=== PATIENT | female | born 1975 | race Caucasian/White ===

== ENCOUNTER 2018-08-31 11:50 | Emergency (ER) | payer BC ==
[2018-08-31] MEDS: SOD CHLORIDE 0.9% 1,000 ML IV (12:21)
[2018-08-31 12:29] LABS: ADD MAN DIFF? NO
[2018-08-31 12:32] LABS: WHITE BLOOD COUNT 7.2 10^3/ul (4.8-10.8)
[2018-08-31 12:32] LABS: BASOPHIL # 0.1 10^3/ul (0.0-0.1); EOSINOPHILS # 0.2 10^3/ul (0.0-0.5); EOSINOPHILS % 2.4 % (0.0-7.0); HEMATOCRIT 28.7 % (37.0-47.0); HEMOGLOBIN 8.4 g/dl (12.0-16.0); LYMPHOCYTES # 1.8 10^3/ul (0.8-2.9); LYMPHOCYTES % 25.2 % (15.0-51.0); MEAN CORPUSCULAR HEMOGLOBIN 20.9 pg (29.0-33.0); MEAN CORPUSCULAR HGB CONC 29.3 g/dl (32.0-37.0); MEAN CORPUSCULAR VOLUME 71.6 fl (82.0-101.0); MEAN PLATELET VOLUME 10.2 fl (7.4-10.4); MONOCYTE # 0.7 10^3/ul (0.3-0.9); NEUTROPHIL # 4.4 10^3/ul (1.6-7.5); PLATELET COUNT 305 10^3/UL (140-415); RED BLOOD COUNT 4.01 10^6/ul (4.20-5.40); RED CELL DISTRIBUTION WIDTH 20.4 % (11.5-14.5)
[2018-08-31 12:39] LABS: ADD UMIC YES; UR ASCORBIC ACID NEGATIVE (NEGATIVE); UR BACTERIA FEW /HPF (NONE SEEN); UR BILIRUBIN (Dip) NEGATIVE (NEGATIVE); UR BLOOD (Dip) 3+ mg/dL (NEGATIVE); UR CLARITY CLEAR (CLEAR); UR COLOR STRAW (YELLOW); UR GLUCOSE (Dip) NEGATIVE (NEGATIVE); UR KETONES (Dip) NEGATIVE (NEGATIVE); UR LEUKOCYTE ESTERASE (Dip) TRACE Leu/ul (NEGATIVE); UR NITRITE (Dip) NEGATIVE (NEGATIVE); UR RBC 3 /HPF (0-5); UR SPECIFIC GRAVITY (Dip) 1.011 (1.003-1.030); UR SQUAMOUS EPITHELIAL CELL FEW /HPF (FEW); UR TOTAL PROTEIN (Dip) NEGATIVE (NEGATIVE); UR UROBILINOGEN (Dip) NEGATIVE (NEGATIVE); UR WBC 2 /HPF (0-5)
[2018-08-31 12:56] LABS: ALANINE AMINOTRANSFERASE 11 IU/L (13-69); ALBUMIN 4.2 g/dl (3.3-4.9); ALKALINE PHOSPHATASE 91 IU/L (42-121); ANION GAP 11 (8-16); ASPARTATE AMINO TRANSFERASE 25 IU/L (15-46); BILIRUBIN,INDIRECT 0.5 mg/dl (0-1.1); BILIRUBIN,TOTAL 0.5 mg/dl (0.2-1.3); BLOOD UREA NITROGEN 11 mg/dl (7-20); CARBON DIOXIDE 27 mmol/L (21-31); CHLORIDE 109 mmol/L (97-110); CREATININE 0.61 mg/dl (0.44-1.00); GLUCOSE 101 mg/dl (70-220); LIPASE 93 U/L (23-300); POTASSIUM 3.9 mmol/L (3.5-5.1); SODIUM 143 mmol/L (135-144)
[2018-08-31 13:13] LABS: INR 0.92; PROTIME 12.4 Sec (11.9-14.9)
== END 2018-08-31 14:52 | disposition home or self-care (01) ==
LOC: FTE 11:50
DX: N92.0 Excessive and frequent menstruation with regular cycle (principal); D64.9 Anemia, unspecified; N39.0 Urinary tract infection, site not specified; I10 Essential (primary) hypertension
CPT/HCPCS: 36415; 76830; 76856; 80053; 81001; 81025; 83690; 85025; 85610; 85730; 96360; 96361; 99285-25

== ENCOUNTER 2018-09-04 10:39 | Emergency (ER) | payer BC ==
[2018-09-04] MEDS: SOD CHLORIDE 0.9% 1,000 ML IV (11:33)
[2018-09-04 11:41] LABS: ADD MAN DIFF? NO
[2018-09-04 11:45] LABS: WHITE BLOOD COUNT 6.2 10^3/ul (4.8-10.8)
[2018-09-04 11:45] LABS: BASOPHIL # 0.1 10^3/ul (0.0-0.1); BASOPHILS % 0.8 % (0.0-2.0); EOSINOPHILS # 0.1 10^3/ul (0.0-0.5); EOSINOPHILS % 1.8 % (0.0-7.0); HEMATOCRIT 28.1 % (37.0-47.0); HEMOGLOBIN 8.2 g/dl (12.0-16.0); LYMPHOCYTES # 1.5 10^3/ul (0.8-2.9); LYMPHOCYTES % 24.8 % (15.0-51.0); MEAN CORPUSCULAR HEMOGLOBIN 20.9 pg (29.0-33.0); MEAN CORPUSCULAR HGB CONC 29.2 g/dl (32.0-37.0); MEAN CORPUSCULAR VOLUME 71.5 fl (82.0-101.0); MEAN PLATELET VOLUME 10.4 fl (7.4-10.4); MONOCYTE # 0.4 10^3/ul (0.3-0.9); MONOCYTES % 7.1 % (0.0-11.0); PLATELET COUNT 291 10^3/UL (140-415); RED BLOOD COUNT 3.93 10^6/ul (4.20-5.40); RED CELL DISTRIBUTION WIDTH 19.9 % (11.5-14.5)
[2018-09-04] MEDS: ESTRADIOL VALERATE 20 MG/0.5 ML INJ IM (12:30)
[2018-09-04] MEDS: HYDROCODONE/APAP (10/325) TAB PO (14:02)
== END 2018-09-04 14:10 | disposition home or self-care (01) ==
LOC: E/R 10:39
DX: N93.9 Abnormal uterine and vaginal bleeding, unspecified (principal); D64.9 Anemia, unspecified; I10 Essential (primary) hypertension
CPT/HCPCS: 36415; 85025; 96372; 99284-25

== ENCOUNTER 2019-02-12 20:12 | Inpatient (IN) | payer BC ==
[2019-02-12 21:57] LABS: ABNORMAL IP MESSAGE 1; HEMATOCRIT 25.8 % (37.0-47.0); MEAN CORPUSCULAR HEMOGLOBIN 16.7 pg (29.0-33.0); MEAN CORPUSCULAR HGB CONC 25.6 g/dl (32.0-37.0); MEAN CORPUSCULAR VOLUME 65.3 fl (82.0-101.0); MEAN PLATELET VOLUME 9.5 fl (7.4-10.4); PLATELET COUNT 304 10^3/UL (140-415); RED BLOOD COUNT 3.95 10^6/ul (4.20-5.40)
[2019-02-12 21:57] LABS: WHITE BLOOD COUNT 8.7 10^3/ul (4.8-10.8)
[2019-02-12 22:02] LABS: POSITIVE DIFF @See below
[2019-02-12 22:03] LABS: HEMOGLOBIN 6.6 g/dl (12.0-16.0)
[2019-02-12 22:04] LABS: ADD MAN DIFF? YES
[2019-02-12 22:17] LABS: INR 0.95; PROTIME 12.8 Sec (11.9-14.9)
[2019-02-12 22:18] LABS: ALANINE AMINOTRANSFERASE 12 IU/L (13-69); ALBUMIN 4.5 g/dl (3.3-4.9); ALBUMIN/GLOBULIN RATIO 1.12; ALKALINE PHOSPHATASE 85 IU/L (42-121); ANION GAP 12 (5-13); ASPARTATE AMINO TRANSFERASE 24 IU/L (15-46); BILIRUBIN,INDIRECT 0.5 mg/dl (0-1.1); BILIRUBIN,TOTAL 0.5 mg/dl (0.2-1.3); BLOOD UREA NITROGEN 10 mg/dl (7-20); CALCIUM 9.4 mg/dl (8.4-10.2); CARBON DIOXIDE 27 mmol/L (21-31); CHLORIDE 103 mmol/L (97-110); CREATININE 0.57 mg/dl (0.44-1.00); Estimated GFR > 60 mL/min (>60); GLUCOSE 106 mg/dl (70-220); PARTIAL THROMBOPLASTIN TIME 29.1 Sec (23.0-35.0); POTASSIUM 3.7 mmol/L (3.5-5.1); SODIUM 142 mmol/L (135-144); TOTAL PROTEIN 8.5 g/dl (6.1-8.1)
[2019-02-12 22:27] LABS: TROPONIN-I < 0.012 ng/ml (0.000-0.120)
[2019-02-12] MEDS: SOD CHLORIDE 0.9% 0 ML IV (22:27)
[2019-02-12 22:30] LABS: ANISOCYTOSIS 3+ (0-0); BASOPHIL #M 0.1 10^3/ul (0.0-0.0); BASOPHILS % (M) 2 % (0-2); EOSINOPHILS % (M) 2 % (0-7); GIANT THROMBO% (M) 3 % (0-0); HYPOCHROMASIA 2+ (0-0); LYMPHOCYTES #M 2.5 10^3/ul (0.8-2.9); LYMPHOCYTES % (M) 29 % (15-51); MICROCYTOSIS 3+ (0-0); MONOCYTE #M 0.5 10^3/ul (0.3-0.9); MONOCYTES % (M) 6 % (0-11); PLATELET ESTIMATE NORMAL; POLYCHROMASIA 1+ (0-0); SEGMENTED NEUTROPHILS (M) % 61 % (39-77)
[2019-02-12] MEDS ORDERED: ONDANSETRON 4 MG INJ IV (23:00)
[2019-02-12] MEDS ORDERED: ACETAMINOPHEN 325 MG TAB PO (23:00)
[2019-02-12 23:19] LABS: IMMEDIATE SPIN CROSSMATCH 1 4
[2019-02-13] MEDS: ACETAMINOPHEN 325 MG TAB PO ×2 (05:44→12:20)
[2019-02-13 06:28] LABS: ADD MAN DIFF? NO
[2019-02-13 06:35] LABS: ABNORMAL IP MESSAGE 1; BASOPHIL # 0.1 10^3/ul (0.0-0.1); BASOPHILS % 0.7 % (0.0-2.0); EOSINOPHILS # 0.1 10^3/ul (0.0-0.5); EOSINOPHILS % 1.9 % (0.0-7.0); HEMATOCRIT 25.9 % (37.0-47.0); HEMOGLOBIN 7.2 g/dl (12.0-16.0); LYMPHOCYTES # 1.9 10^3/ul (0.8-2.9); MEAN CORPUSCULAR HEMOGLOBIN 19.2 pg (29.0-33.0); MEAN CORPUSCULAR HGB CONC 27.8 g/dl (32.0-37.0); MEAN CORPUSCULAR VOLUME 69.1 fl (82.0-101.0); MEAN PLATELET VOLUME 9.7 fl (7.4-10.4); MONOCYTE # 0.7 10^3/ul (0.3-0.9); MONOCYTES % 10.3 % (0.0-11.0); NEUTROPHILS % 58.8 % (39.0-77.0); PLATELET COUNT 233 10^3/UL (140-415); RED BLOOD COUNT 3.75 10^6/ul (4.20-5.40); RED CELL DISTRIBUTION WIDTH 20.1 % (11.5-14.5)
[2019-02-13 06:35] LABS: WHITE BLOOD COUNT 6.8 10^3/ul (4.8-10.8)
[2019-02-13 06:38] LABS: POSITIVE DIFF @See below
[2019-02-13] MEDS: LISINOPRIL 10 MG TAB PO ×2 (08:56→20:44)
[2019-02-13] MEDS: FERROUS SULFATE (EC) 325 MG TAB PO ×2 (08:56→20:44)
[2019-02-13] MEDS: ATORVASTATIN 40 MG TAB PO (20:44)
[2019-02-14 01:04] LABS: HEMATOCRIT 30.3 % (37.0-47.0); HEMOGLOBIN 8.7 g/dl (12.0-16.0)
[2019-02-14] MEDS: ACETAMINOPHEN 325 MG TAB PO (02:06)
[2019-02-14] MEDS: FERROUS SULFATE (EC) 325 MG TAB PO (08:42)
[2019-02-14] MEDS: LISINOPRIL 10 MG TAB PO (08:42)
== END 2019-02-14 11:25 | disposition home or self-care (01) | DRG 812 ==
LOC: PP2 02-13 01:00 → E/R 20:12
PROVIDERS: Pediatrics Neonatal-Perinatal Medicine
PROC: 30233N1 Transfusion of Nonautologous Red Blood Cells into Peripheral Vein, Percutaneous Approach (ICD-10-PCS; principal; 2019-02-12)
DX: D64.9 Anemia, unspecified (principal); N92.1 Excessive and frequent menstruation with irregular cycle; D25.9 Leiomyoma of uterus, unspecified
CPT/HCPCS: 36415; 36430; 80053; 81025; 84484; 85014; 85018; 85025; 85610; 85730; 86850; 86900; 86901; 86920; 90686; 93005; 93970; 99291-25

== ENCOUNTER 2019-02-18 06:22 | Day surgery (SDC) | payer BC ==
[2019-02-18] MEDS ORDERED: METOCLOPRAMIDE 10 MG INJ (07:00)
[2019-02-18] MEDS ORDERED: CEFAZOLIN 1 GM INJ (07:00)
[2019-02-18] MEDS ORDERED: LIDOCAINE 2% (SDV) 5 ML INJ (07:00)
[2019-02-18] MEDS ORDERED: SEVOFLURANE 15 MIN (07:00)
[2019-02-18] MEDS ORDERED: ONDANSETRON 4 MG INJ (07:00)
[2019-02-18] MEDS ORDERED: DEXAMETHASONE 4 MG/ML 5 ML INJ (07:00)
[2019-02-18 08:04] LABS: HEMATOCRIT 32.6 % (37.0-47.0); HEMOGLOBIN 9.1 g/dl (12.0-16.0)
[2019-02-18] MEDS ORDERED: FENTAnyl 50 MCG/ML VIAL ×2 (08:21→09:16)
[2019-02-18] MEDS ORDERED: MIDAZOLAM 1 MG/ML 2 ML INJ (08:22)
[2019-02-18] MEDS ORDERED: PROPOFOL 20 ML (08:22)
[2019-02-18] MEDS ORDERED: MIDAZOLAM 1 MG/ML 2 ML INJ IV (08:30)
[2019-02-18] MEDS ORDERED: ONDANSETRON 4 MG INJ IV (08:30)
[2019-02-18] MEDS ORDERED: HYDROmorphONE 1 MG/5 ML IV SYRINGE IV ×2 (08:30)
[2019-02-18] MEDS ORDERED: FENTAnyl 50 MCG/ML VIAL IV (08:30)
[2019-02-18] MEDS ORDERED: hydrALAzine 20 MG INJ IV (08:30)
[2019-02-18] MEDS ORDERED: DIPHENHYDRAMINE 50 MG INJ IV (08:30)
[2019-02-18] MEDS ORDERED: LEVALBUTEROL (NEB) 1.25 MG/0.5 ML AMP HHN (08:30)
[2019-02-18] MEDS ORDERED: LABETALOL HCL 20MG INJ IV (08:30)
[2019-02-18] MEDS ORDERED: MEPERIDINE 25 MG INJ IV (08:30)
[2019-02-18] MEDS: FENTAnyl 50 MCG/ML VIAL IV (09:20)
[2019-02-18] MEDS: ACETAMINOPHEN 325 MG TAB PO (10:42)
== END 2019-02-18 11:00 | disposition home or self-care (01) ==
LOC: SDS 06:22
DX: N92.0 Excessive and frequent menstruation with regular cycle (principal); D64.9 Anemia, unspecified; D25.9 Leiomyoma of uterus, unspecified; I10 Essential (primary) hypertension; E78.5 Hyperlipidemia, unspecified; E11.9 Type 2 diabetes mellitus without complications; R10.2 Pelvic and perineal pain
CPT/HCPCS: 58558; 84702; 85014; 85018; 86850; 86900; 86901; 88305

== ENCOUNTER 2019-02-23 06:45 | Emergency (ER) | payer BC ==
[2019-02-23 07:25] LABS: ADD MAN DIFF? NO
[2019-02-23 07:28] LABS: WHITE BLOOD COUNT 5.3 10^3/ul (4.8-10.8)
[2019-02-23 07:28] LABS: ABNORMAL IP MESSAGE 1; BASOPHILS % 0.8 % (0.0-2.0); EOSINOPHILS # 0.4 10^3/ul (0.0-0.5); EOSINOPHILS % 6.8 % (0.0-7.0); HEMOGLOBIN 9.3 g/dl (12.0-16.0); LYMPHOCYTES # 1.2 10^3/ul (0.8-2.9); LYMPHOCYTES % 21.8 % (15.0-51.0); MEAN CORPUSCULAR HGB CONC 29.1 g/dl (32.0-37.0); MEAN CORPUSCULAR VOLUME 72.2 fl (82.0-101.0); MEAN PLATELET VOLUME 10.2 fl (7.4-10.4); MONOCYTE # 0.5 10^3/ul (0.3-0.9); MONOCYTES % 10.2 % (0.0-11.0); NEUTROPHIL # 3.2 10^3/ul (1.6-7.5); PLATELET COUNT 221 10^3/UL (140-415); RED BLOOD COUNT 4.43 10^6/ul (4.20-5.40); RED CELL DISTRIBUTION WIDTH 25.5 % (11.5-14.5)
[2019-02-23 07:34] LABS: UR RBC 0 /HPF (0-5); UR WBC 0 /HPF (0-5)
[2019-02-23 07:41] LABS: POSITIVE DIFF @See below
[2019-02-23 07:45] LABS: ADD UMIC NO; UR BILIRUBIN (Dip) NEGATIVE (NEGATIVE); UR BLOOD (Dip) NEGATIVE (NEGATIVE); UR CLARITY CLEAR (CLEAR); UR COLOR STRAW (YELLOW); UR GLUCOSE (Dip) NEGATIVE (NEGATIVE); UR KETONES (Dip) NEGATIVE (NEGATIVE); UR LEUKOCYTE ESTERASE (Dip) NEGATIVE Leu/ul (NEGATIVE); UR NITRITE (Dip) NEGATIVE (NEGATIVE); UR TOTAL PROTEIN (Dip) NEGATIVE (NEGATIVE); UR UROBILINOGEN (Dip) NEGATIVE (NEGATIVE); URINE SPECIFIC GRAVITY (Dip) 1.005 (1.003-1.030)
[2019-02-23 07:46] LABS: UR ASCORBIC ACID NEGATIVE (NEGATIVE)
[2019-02-23 07:49] LABS: ALANINE AMINOTRANSFERASE 18 IU/L (13-69); ALBUMIN 4.2 g/dl (3.3-4.9); ALBUMIN/GLOBULIN RATIO 1.13; ALKALINE PHOSPHATASE 83 IU/L (42-121); ANION GAP 12 (5-13); ASPARTATE AMINO TRANSFERASE 19 IU/L (15-46); BILIRUBIN,INDIRECT 0.7 mg/dl (0-1.1); BILIRUBIN,TOTAL 0.7 mg/dl (0.2-1.3); BLOOD UREA NITROGEN 11 mg/dl (7-20); CALCIUM 8.7 mg/dl (8.4-10.2); CARBON DIOXIDE 24 mmol/L (21-31); CHLORIDE 104 mmol/L (97-110); CREATININE 0.54 mg/dl (0.44-1.00); Estimated GFR > 60 mL/min (>60); GLUCOSE 99 mg/dl (70-220); POTASSIUM 3.9 mmol/L (3.5-5.1); SODIUM 140 mmol/L (135-144); TOTAL PROTEIN 7.9 g/dl (6.1-8.1)
== END 2019-02-23 09:45 | disposition home or self-care (01) ==
LOC: E/R 06:45
DX: N93.9 Abnormal uterine and vaginal bleeding, unspecified (principal); I10 Essential (primary) hypertension; R10.2 Pelvic and perineal pain
CPT/HCPCS: 36415; 71045; 76856; 80053; 81003; 84702; 85025; 86900; 86901; 99285-25